=== PATIENT | female | born 1945 | race Caucasian/White ===

== ENCOUNTER 2017-09-23 07:30 | Inpatient (IN) | payer MEDICARE, OTHER ==
[~2017-09-23] VITALS: Ht 162.6 cm; Wt 78.0 kg
[~2017-09-23 07:30] MED LIST: AMOX1TAB64 PO; ASPI-691 PO; ATEN25TA PO; BROM1.7D9 EACHEYE; CHOL100015 PO; DEXL60CA2 PO; MORP15TA PO; RALO60TA PO; SERT50TA PO; TRIA0.2576 PO; [UNRECOGNIZED DRUG - CODE] EACHEYE
[2017-09-23] MEDS ORDERED: SCOPOLAMINE PATCH, 1.5MG PATCH.TD72 TD ONE (08:00)
[2017-09-23] MEDS ORDERED: ONDANSETRON ODT 8 MG PO ONE (08:00)
[2017-09-23] MEDS ORDERED: ACETAMINOPHEN 500 MG TABLET PO ONE (08:00)
[2017-09-23] MEDS ORDERED: GABAPENTIN 300 MG CAPSULE PO ONE (08:00)
[2017-09-23] MEDS ORDERED: LACTATED RINGERS 1,000 ML IV SCH (08:00)
[2017-09-23 08:15] VITALS: BP 107/71
[2017-09-23] MEDS ORDERED: FENTANYL PF 250 MCG/5ML ONE (11:42)
[2017-09-23] MEDS ORDERED: PROPOFOL 50 ML ONE ×2 (11:42→13:39)
[2017-09-23] MEDS ORDERED: DEXAMETHASONE 4 MG/ML, 1ML ONE (11:42)
[2017-09-23] MEDS ORDERED: CEFAZOLIN 1,000 MG ONE (11:42)
[2017-09-23] MEDS ORDERED: PROPOFOL 10 MG/ML, 20ML ONE (11:42)
[2017-09-23] MEDS ORDERED: THROMBIN 5,000 UNIT VIAL TP ONE (12:03)
[2017-09-23] MEDS ORDERED: BUPIVACAINE/PF-EPI 0.5% 1:200K ONE (12:03)
[2017-09-23] MEDS ORDERED: BACITRACIN 50,000 UNIT ONE (12:03)
[2017-09-23] MEDS ORDERED: PHENYLEPHRINE 10 MG/ML ONE (12:31)
[2017-09-23] MEDS ORDERED: EPHEDRINE 50 MG/ML, 1ML ONE (12:31)
[2017-09-23] MEDS ORDERED: SUCCINYLCHOLINE 20 MG/ML, 10ML ONE (12:31)
[2017-09-23] MEDS ORDERED: KETAMINE 10 MG/ML, 20ML ONE (13:23)
[2017-09-23] MEDS ORDERED: LIDOCAINE GEL 2%, 5ML ONE (13:48)
[2017-09-23] MEDS ORDERED: FENTANYL PF 100 MCG/2ML IV PRN (14:00)
[2017-09-23] MEDS ORDERED: DIPHENHYDRAMINE 50 MG/ML, 1ML IVPush PRN ×2 (14:00→15:00)
[2017-09-23] MEDS ORDERED: DIAZEPAM 5 MG/ML, 2ML IVPush PRN (14:00)
[2017-09-23] MEDS ORDERED: PROMETHAZINE 25 MG/ML, 1ML IV PRN (14:00)
[2017-09-23] MEDS ORDERED: HALOPERIDOL 5 MG/ML IV PRN (14:00)
[2017-09-23] MEDS ORDERED: hydrALAzine 20 MG/ML, 1ML IV PRN (14:00)
[2017-09-23] MEDS ORDERED: MEPERIDINE/PF 25MG/0.5ML IVPush PRN (14:00)
[2017-09-23] MEDS ORDERED: MIDAZOLAM 1 MG/ML, 2ML IV PRN (14:00)
[2017-09-23] MEDS ORDERED: OXYcodone 5 MG/5 ML ORAL.SOL UDC PO PRN (14:00)
[2017-09-23] MEDS ORDERED: LABETALOL 5MG/ML, 20ML IV PRN (14:00)
[2017-09-23] MEDS ORDERED: ALBUTEROL/IPRATROPIUM 2.5MG/0.5MG, 3 ML NPPB PRN (14:00)
[2017-09-23] MEDS ORDERED: LORazepam 2 MG/ML, 1ML IVPush PRN (14:00)
[2017-09-23] MEDS ORDERED: ONDANSETRON ODT 8 MG PO PRN (14:00)
[2017-09-23] MEDS ORDERED: PROMETHAZINE 25 MG/ML, 1ML IM PRN ×2 (14:00→15:00)
[2017-09-23] MEDS ORDERED: VANCOMYCIN 1,000 MG ONE (14:27)
[2017-09-23] MEDS ORDERED: BISACODYL 10 MG SUPP PR PRN (15:00)
[2017-09-23] MEDS ORDERED: PHARMACY MAY ADJ FOR RENAL FX MC PRN (15:00)
[2017-09-23] MEDS ORDERED: ONDANSETRON 2MG/ML, 2ML IVPush PRN (15:00)
[2017-09-23] MEDS ORDERED: MAGNESIUM HYDROXIDE 8%, 30ML UDC PO PRN (15:00)
[2017-09-23] MEDS ORDERED: morphine SULFATE 10 MG/ML, 1ML ONE (17:39)
[2017-09-23] MEDS: MORPHINE SULFATE 4 MG/ML, 1ML IVPush PRN ×2 (17:41→17:51)
[2017-09-23 18:30] VITALS: BP 93/61
[2017-09-23] MEDS: NS + 20MEQ KCL 1,000 ML IV SCH (19:52)
[2017-09-23 20:23] VITALS: BP 91/49
[2017-09-23] MEDS: CEFAZOLIN PMX 1GM/50ML 50 ML IVPB SCH (20:59)
[2017-09-23] MEDS: SODIUM CHLORIDE FLUSH 10ML SYR IVF SCH (21:00)
[2017-09-24 00:08] VITALS: BP 94/60
[2017-09-24] MEDS: CEFAZOLIN PMX 1GM/50ML 50 ML IVPB SCH (05:00)
[2017-09-24 05:04] VITALS: BP 91/56
[2017-09-24] MEDS: NS + 20MEQ KCL 1,000 ML IV SCH ×2 (05:41→16:00)
[2017-09-24 05:51] LABS: BASOPHILS # (AUTO) 0.01 x10^3/uL (0-0.1); BASOPHILS % (AUTO) 0 % (0-1); EOSINOPHILS % (AUTO) 0 % (1-7); LYMPHOCYTES # (AUTO) 0.55 x10^3/uL (1-3.4); LYMPHOCYTES % (AUTO) 4 % (22-44); MD NO; MEAN CORPUSCULAR HEMOGLOBIN 29.6 pg (27.0-34.8); MEAN CORPUSCULAR HGB CONC 33.2 g/dL (32.4-35.8); MEAN PLATELET VOLUME 9.6 fL (7.4-10.4); MONOCYTES # (AUTO) 0.82 x10^3/uL (0.2-0.8); MONOCYTES % (AUTO) 6 % (2-9); NEUTROPHILS # (AUTO) 12.28 x10^3/uL (1.8-6.8); NEUTROPHILS % (AUTO) 90 % (42-75); PLATELET COUNT 143 x10^3/uL (130-400); RED BLOOD COUNT 3.45 x10^6/uL (3.82-5.3); RED CELL DISTRIBUTION WIDTH 13.6 % (9.6-15.2)
[2017-09-24 06:00] LABS: ANION GAP 6 mmol/L (5-15); CALCIUM 8.2 mg/dL (8.5-10.1); CHLORIDE 110 mmol/L (98-107)
[2017-09-24 06:03] LABS: CREATININE 0.73 mg/dL (0.55-1.02)
[2017-09-24 06:44] VITALS: BP 102/64
[2017-09-24] MEDS: SODIUM CHLORIDE FLUSH 10ML SYR IVF SCH ×2 (08:55→23:20)
[2017-09-24] MEDS: SERTRALINE 50MG TABLET PO SCH (08:55)
[2017-09-24] MEDS: morphine SULFATE 15 MG TAB.IR PO PRN ×3 (08:56→16:16)
[2017-09-24] MEDS: ATENOLOL 25 MG TABLET PO SCH (08:56)
[2017-09-24] MEDS: SENNA/DOCUSATE TABLET PO SCH (08:56)
[2017-09-24] MEDS: RALOXIFENE 60 MG TABLET PO SCH (11:27)
[2017-09-24 14:14] VITALS: BP 90/60
[2017-09-24 18:28] VITALS: BP 96/62
[2017-09-24] MEDS: ACETAMINOPHEN 325 MG TABLET PO PRN (22:34)
[2017-09-24 22:56] VITALS: BP 82/54
[2017-09-24] MEDS ORDERED: SODIUM CHLORIDE 0.9% 1,000ML IVBOLUS ONE (23:00)
[2017-09-24 23:16] LABS: MICROSCOPIC NOT IND
[2017-09-24 23:30] LABS: CULTURE INDICATED? NO
[2017-09-25 00:53] VITALS: BP 105/66
[2017-09-25] MEDS: morphine SULFATE 15 MG TAB.IR PO PRN ×5 (00:59→23:08)
[2017-09-25 05:30] LABS: ANION GAP 5 mmol/L (5-15); CALCIUM 7.4 mg/dL (8.5-10.1); CHLORIDE 112 mmol/L (98-107)
[2017-09-25 05:31] LABS: CREATININE 0.68 mg/dL (0.55-1.02)
[2017-09-25 05:35] LABS: BASOPHILS # (AUTO) 0.02 x10^3/uL (0-0.1); BASOPHILS % (AUTO) 0 % (0-1); EOSINOPHILS # (AUTO) 0.01 x10^3/uL (0-0.4); EOSINOPHILS % (AUTO) 0 % (1-7); LYMPHOCYTES # (AUTO) 1.39 x10^3/uL (1-3.4); LYMPHOCYTES % (AUTO) 14 % (22-44); MD NO; MEAN CORPUSCULAR HEMOGLOBIN 28.7 pg (27.0-34.8); MEAN CORPUSCULAR VOLUME 89.7 fL (80-100); MEAN PLATELET VOLUME 10.4 fL (7.4-10.4); MONOCYTES % (AUTO) 10 % (2-9); NEUTROPHILS % (AUTO) 77 % (42-75); PLATELET COUNT 124 x10^3/uL (130-400); RED BLOOD COUNT 2.98 x10^6/uL (3.82-5.3); RED CELL DISTRIBUTION WIDTH 13.9 % (9.6-15.2)
[2017-09-25] MEDS: NS + 20MEQ KCL 1,000 ML IV SCH ×2 (06:32→18:21)
[2017-09-25 08:26] VITALS: BP 102/65
[2017-09-25] MEDS: ATENOLOL 25 MG TABLET PO SCH (09:00)
[2017-09-25] MEDS: RALOXIFENE 60 MG TABLET PO SCH (09:55)
[2017-09-25] MEDS: SERTRALINE 50MG TABLET PO SCH (09:56)
[2017-09-25] MEDS: SENNA/DOCUSATE TABLET PO SCH (09:56)
[2017-09-25] MEDS: SODIUM CHLORIDE FLUSH 10ML SYR IVF SCH ×2 (09:56→22:17)
[2017-09-25] MEDS: ACETAMINOPHEN 325 MG TABLET PO PRN ×2 (11:58→18:37)
[2017-09-25] MEDS ORDERED: TIZANIDINE 4MG TABLET ONE ×2 (12:28→20:28)
[2017-09-25] MEDS: TIZANIDINE 2MG TABLET PO PRN ×2 (12:31→20:51)
[2017-09-25 14:30] VITALS: BP 88/54
[2017-09-25 15:50] LABS: BASOPHILS # (AUTO) 0.12 x10^3/uL (0-0.1); BASOPHILS % (AUTO) 1 % (0-1); EOSINOPHILS # (AUTO) 0.01 x10^3/uL (0-0.4); EOSINOPHILS % (AUTO) 0 % (1-7); LYMPHOCYTES # (AUTO) 1.33 x10^3/uL (1-3.4); LYMPHOCYTES % (AUTO) 14 % (22-44); MD SCAN; MEAN CORPUSCULAR HEMOGLOBIN 29.7 pg (27.0-34.8); MEAN CORPUSCULAR HGB CONC 33.4 g/dL (32.4-35.8); MEAN CORPUSCULAR VOLUME 88.9 fL (80-100); MEAN PLATELET VOLUME 9.2 fL (7.4-10.4); MONOCYTES # (AUTO) 0.86 x10^3/uL (0.2-0.8); MONOCYTES % (AUTO) 9 % (2-9); NEUTROPHILS % (AUTO) 75 % (42-75); PLATELET COUNT 112 x10^3/uL (130-400); RED BLOOD COUNT 2.89 x10^6/uL (3.82-5.3); RED CELL DISTRIBUTION WIDTH 13.4 % (9.6-15.2)
[2017-09-25] MEDS ORDERED: SODIUM CHLORIDE 0.9%, 500ML IVBOLUS ONE (17:00)
[2017-09-25 18:40] VITALS: BP 106/68
[2017-09-25 20:49] VITALS: BP 103/63
[2017-09-25] MEDS ORDERED: IPRA4AER PO (21:53)
[2017-09-25] MEDS ORDERED: BUDE10.22 PO (21:53)
[2017-09-26 01:34] VITALS: BP 102/51
[2017-09-26] MEDS ORDERED: TIZANIDINE 4MG TABLET ONE ×3 (03:26→16:08)
[2017-09-26] MEDS: TIZANIDINE 2MG TABLET PO PRN ×2 (03:27→16:05)
[2017-09-26] MEDS: morphine SULFATE 15 MG TAB.IR PO PRN ×3 (04:45→22:29)
[2017-09-26] MEDS: ACETAMINOPHEN 325 MG TABLET PO PRN ×2 (05:25→09:26)
[2017-09-26 05:45] LABS: BASOPHILS # (AUTO) 0.01 x10^3/uL (0-0.1); BASOPHILS % (AUTO) 0 % (0-1); EOSINOPHILS % (AUTO) 0 % (1-7); LYMPHOCYTES # (AUTO) 0.34 x10^3/uL (1-3.4); LYMPHOCYTES % (AUTO) 3 % (22-44); MD NO; MEAN CORPUSCULAR HEMOGLOBIN 30.2 pg (27.0-34.8); MEAN CORPUSCULAR HGB CONC 33.6 g/dL (32.4-35.8); MEAN CORPUSCULAR VOLUME 89.8 fL (80-100); MEAN PLATELET VOLUME 10.9 fL (7.4-10.4); MONOCYTES # (AUTO) 0.63 x10^3/uL (0.2-0.8); MONOCYTES % (AUTO) 6 % (2-9); NEUTROPHILS # (AUTO) 9.83 x10^3/uL (1.8-6.8); NEUTROPHILS % (AUTO) 91 % (42-75); PLATELET COUNT 112 x10^3/uL (130-400); RED BLOOD COUNT 3.06 x10^6/uL (3.82-5.3); RED CELL DISTRIBUTION WIDTH 13.6 % (9.6-15.2)
[2017-09-26 05:58] LABS: ANION GAP 7 mmol/L (5-15); CALCIUM 7.8 mg/dL (8.5-10.1); CHLORIDE 108 mmol/L (98-107); CREATININE 0.56 mg/dL (0.55-1.02)
[2017-09-26] MEDS: NS + 20MEQ KCL 1,000 ML IV SCH ×2 (06:24→16:08)
[2017-09-26 07:50] VITALS: BP 117/58
[2017-09-26] MEDS: SODIUM CHLORIDE FLUSH 10ML SYR IVF SCH ×2 (09:00→21:49)
[2017-09-26] MEDS: SENNA/DOCUSATE TABLET PO SCH (09:17)
[2017-09-26] MEDS: RALOXIFENE 60 MG TABLET PO SCH (09:17)
[2017-09-26] MEDS: ATENOLOL 25 MG TABLET PO SCH (09:18)
[2017-09-26] MEDS: SERTRALINE 50MG TABLET PO SCH (09:18)
[2017-09-26] MEDS: DEXAMETHASONE 4 MG TABLET PO SCH ×3 (10:00→21:48)
[2017-09-26 13:41] VITALS: BP 86/54
[2017-09-26 19:01] VITALS: BP 89/53
[2017-09-26 22:25] VITALS: BP 149/75
[2017-09-26 23:05] LABS: MICROSCOPIC NOT IND
[2017-09-26 23:14] LABS: CULTURE INDICATED? NO
[2017-09-27 02:28] VITALS: BP 132/63
[2017-09-27 05:25] LABS: ANION GAP 8 mmol/L (5-15); CALCIUM 8.2 mg/dL (8.5-10.1); CHLORIDE 105 mmol/L (98-107); CREATININE 0.67 mg/dL (0.55-1.02)
[2017-09-27] MEDS: morphine SULFATE 15 MG TAB.IR PO PRN ×4 (05:58→20:23)
[2017-09-27 06:11] LABS: BASOPHILS # (AUTO) 0.09 x10^3/uL (0-0.1); BASOPHILS % (AUTO) 1 % (0-1); EOSINOPHILS % (AUTO) 0 % (1-7); LYMPHOCYTES % (AUTO) 2 % (22-44); MD SCAN; MONOCYTES # (AUTO) 0.61 x10^3/uL (0.2-0.8); MONOCYTES % (AUTO) 4 % (2-9); NEUTROPHILS # (AUTO) 13.16 x10^3/uL (1.8-6.8); NEUTROPHILS % (AUTO) 93 % (42-75)
[2017-09-27 06:13] LABS: MEAN CORPUSCULAR HEMOGLOBIN 30.5 pg (27.0-34.8); MEAN CORPUSCULAR HGB CONC 34.2 g/dL (32.4-35.8); MEAN CORPUSCULAR VOLUME 89.2 fL (80-100); MEAN PLATELET VOLUME 10.4 fL (7.4-10.4); PLATELET COUNT 140 x10^3/uL (130-400); RED BLOOD COUNT 3.26 x10^6/uL (3.82-5.3); RED CELL DISTRIBUTION WIDTH 13.3 % (9.6-15.2)
[2017-09-27 06:31] VITALS: BP 152/71
[2017-09-27] MEDS ORDERED: TIZANIDINE 4MG TABLET ONE ×2 (07:04→16:04)
[2017-09-27] MEDS: TIZANIDINE 2MG TABLET PO PRN ×2 (07:06→16:06)
[2017-09-27] MEDS: ACETAMINOPHEN 325 MG TABLET PO PRN ×3 (07:06→22:10)
[2017-09-27 08:00] VITALS: BP 112/68
[2017-09-27] MEDS: SODIUM CHLORIDE FLUSH 10ML SYR IVF SCH ×2 (09:00→20:23)
[2017-09-27] MEDS: SENNA/DOCUSATE TABLET PO SCH (09:43)
[2017-09-27] MEDS: SERTRALINE 50MG TABLET PO SCH (09:43)
[2017-09-27] MEDS: RALOXIFENE 60 MG TABLET PO SCH (09:43)
[2017-09-27] MEDS: DEXAMETHASONE 4 MG/ML, 1ML IVPush SCH ×3 (09:43→20:23)
[2017-09-27] MEDS: CIPROFLOXACIN 500 MG TABLET PO SCH ×2 (09:44→20:23)
[2017-09-27] MEDS: ATENOLOL 25 MG TABLET PO SCH (09:44)
[2017-09-27] MEDS: NS + 20MEQ KCL 1,000 ML IV SCH ×2 (13:09→23:25)
[2017-09-27 14:36] VITALS: BP 94/50
[2017-09-27 19:39] VITALS: BP 95/51
[2017-09-28] MEDS: TIZANIDINE 2MG TABLET PO PRN ×3 (00:17→20:06)
[2017-09-28 00:27] VITALS: BP 94/49
[2017-09-28] MEDS: morphine SULFATE 15 MG TAB.IR PO PRN ×3 (02:30→18:01)
[2017-09-28] MEDS: DEXAMETHASONE 4 MG/ML, 1ML IVPush SCH ×4 (02:31→22:42)
[2017-09-28 05:04] LABS: ANION GAP 8 mmol/L (5-15); CALCIUM 8.1 mg/dL (8.5-10.1); CHLORIDE 109 mmol/L (98-107); CREATININE 0.54 mg/dL (0.55-1.02)
[2017-09-28] MEDS: ACETAMINOPHEN 325 MG TABLET PO PRN ×3 (05:53→22:48)
[2017-09-28 06:24] LABS: MEAN CORPUSCULAR HGB CONC 33.6 g/dL (32.4-35.8); MEAN CORPUSCULAR VOLUME 89.3 fL (80-100); MEAN PLATELET VOLUME 10.8 fL (7.4-10.4); PLATELET COUNT 139 x10^3/uL (130-400); RED BLOOD COUNT 2.75 x10^6/uL (3.82-5.3); RED CELL DISTRIBUTION WIDTH 13.9 % (9.6-15.2)
[2017-09-28 06:26] LABS: BASOPHILS # (AUTO) 0.02 x10^3/uL (0-0.1); BASOPHILS % (AUTO) 0 % (0-1); EOSINOPHILS % (AUTO) 0 % (1-7); LYMPHOCYTES % (AUTO) 4 % (22-44); MD SCAN; MONOCYTES % (AUTO) 5 % (2-9); NEUTROPHILS # (AUTO) 8.99 x10^3/uL (1.8-6.8); NEUTROPHILS % (AUTO) 91 % (42-75)
[2017-09-28] MEDS: SENNA/DOCUSATE TABLET PO SCH (08:32)
[2017-09-28] MEDS: RALOXIFENE 60 MG TABLET PO SCH (08:32)
[2017-09-28] MEDS: SERTRALINE 50MG TABLET PO SCH (08:32)
[2017-09-28] MEDS: CIPROFLOXACIN 500 MG TABLET PO SCH ×2 (08:33→22:42)
[2017-09-28 08:34] VITALS: BP 90/38
[2017-09-28] MEDS: ATENOLOL 25 MG TABLET PO SCH ×2 (08:35→08:56)
[2017-09-28] MEDS: SODIUM CHLORIDE FLUSH 10ML SYR IVF SCH ×2 (09:00→22:42)
[2017-09-28] MEDS: NS + 20MEQ KCL 1,000 ML IV SCH ×2 (09:35→22:42)
[2017-09-28 11:58] VITALS: BP 109/62
[2017-09-28] MEDS ORDERED: TIZANIDINE 4MG TABLET ONE ×2 (12:03→20:03)
[2017-09-28 13:39] VITALS: BP 107/64
[2017-09-28 18:55] VITALS: BP 120/69
[2017-09-29] MEDS: morphine SULFATE 15 MG TAB.IR PO PRN ×2 (00:46→10:56)
[2017-09-29 02:08] VITALS: BP 104/66
[2017-09-29] MEDS: ACETAMINOPHEN 325 MG TABLET PO PRN (03:25)
[2017-09-29] MEDS: DEXAMETHASONE 4 MG/ML, 1ML IVPush SCH ×2 (03:25→10:56)
[2017-09-29] MEDS ORDERED: TIZANIDINE 4MG TABLET ONE (03:36)
[2017-09-29] MEDS: TIZANIDINE 2MG TABLET PO PRN (03:38)
[2017-09-29 05:38] LABS: CHLORIDE 109 mmol/L (98-107)
[2017-09-29 05:48] LABS: ANION GAP 8 mmol/L (5-15); CALCIUM 8.1 mg/dL (8.5-10.1); CREATININE 0.59 mg/dL (0.55-1.02)
[2017-09-29 06:01] LABS: MEAN CORPUSCULAR HEMOGLOBIN 30.1 pg (27.0-34.8); MEAN CORPUSCULAR HGB CONC 33.8 g/dL (32.4-35.8); MEAN CORPUSCULAR VOLUME 89.1 fL (80-100); MEAN PLATELET VOLUME 10.4 fL (7.4-10.4); PLATELET COUNT 152 x10^3/uL (130-400); RED BLOOD COUNT 2.88 x10^6/uL (3.82-5.3); RED CELL DISTRIBUTION WIDTH 13.7 % (9.6-15.2)
[2017-09-29 06:30] LABS: BASOPHILS % (AUTO) 0 % (0-1); EOSINOPHILS % (AUTO) 0 % (1-7); LYMPHOCYTES # (AUTO) 0.46 x10^3/uL (1-3.4); LYMPHOCYTES % (AUTO) 6 % (22-44); MD SCAN; MONOCYTES % (AUTO) 5 % (2-9); NEUTROPHILS # (AUTO) 7.03 x10^3/uL (1.8-6.8); NEUTROPHILS % (AUTO) 89 % (42-75)
[2017-09-29] MEDS: NS + 20MEQ KCL 1,000 ML IV SCH (08:00)
[2017-09-29 08:20] VITALS: BP 114/69
[2017-09-29] MEDS ORDERED: CIPR500T87 PO (08:55)
[2017-09-29] MEDS ORDERED: TIZA2TAB PO (08:55)
[2017-09-29] MEDS ORDERED: MORP15TA PO (08:55)
[2017-09-29] MEDS ORDERED: METH4TAB2 PO (08:55)
[2017-09-29] MEDS: ATENOLOL 25 MG TABLET PO SCH (09:00)
[2017-09-29] MEDS: RALOXIFENE 60 MG TABLET PO SCH (10:56)
[2017-09-29] MEDS: SODIUM CHLORIDE FLUSH 10ML SYR IVF SCH (10:56)
[2017-09-29] MEDS: SERTRALINE 50MG TABLET PO SCH (10:57)
[2017-09-29] MEDS: CIPROFLOXACIN 500 MG TABLET PO SCH (10:57)
[2017-09-29] MEDS: SENNA/DOCUSATE TABLET PO SCH (10:57)
== END 2017-09-29 12:50 | disposition home or self-care (01) | DRG 460 ==
LOC: ORIP 07:39 → 4NOR 18:17
PROVIDERS: ADMIT Neurological Surgery; ATTEND Neurological Surgery
PROC: 01NB0ZZ Release Lumbar Nerve, Open Approach (ICD-10-PCS; 2017-09-23)
PROC: 0SP00JZ Removal of Synthetic Substitute from Lumbar Vertebral Joint, Open Approach (ICD-10-PCS; 2017-09-23)
PROC: 0SG00AJ Fusion of Lumbar Vertebral Joint with Interbody Fusion Device, Posterior Approach, Anterior Column, Open Approach (ICD-10-PCS; principal; 2017-09-23 11:00)
PROC: 0T9B70Z Drainage of Bladder with Drainage Device, Via Natural or Artificial Opening (ICD-10-PCS; 2017-09-26)
DX: M48.062 Spinal stenosis, lumbar region with neurogenic claudication (principal); R71.0 Precipitous drop in hematocrit; M43.16 Spondylolisthesis, lumbar region; Z87.440 Personal history of urinary (tract) infections; M51.36 Other intervertebral disc degeneration, lumbar region; M43.26 Fusion of spine, lumbar region; M19.90 Unspecified osteoarthritis, unspecified site; M79.7 Fibromyalgia; G89.29 Other chronic pain; E78.00 Pure hypercholesterolemia, unspecified; Z86.718 Personal history of other venous thrombosis and embolism; Z88.6 Allergy status to analgesic agent; Z88.1 Allergy status to other antibiotic agents; Z88.2 Allergy status to sulfonamides; Z80.9 Family history of malignant neoplasm, unspecified
CPT/HCPCS: 36415; 72100; 72131; 80048; 81003; 82962; 85025; 95938; 95941; C1713; C1776; J0690; J1100; J2270; J2550; J2704; J3010; J3370; J3480; Q0162; C1762; J0330; J2370; J7030; J7040; J7120

== ENCOUNTER 2018-06-14 22:54 | Emergency (ER) | payer MEDICARE, OTHER ==
[~2018-06-14] VITALS: Ht 162.6 cm; Wt 67.0 kg
[~2018-06-14 22:54] MED LIST changes: +BUDE10.22 PO; +CIPR500T87 PO; +IPRA4AER PO; +METH4TAB2 PO; +TIZA2TAB PO
--- NOTE | 2018-06-14 23:14 | NUR ---
assessment made. ERP at bedside.
[2018-06-14] MEDS ORDERED: SODIUM CHLORIDE FLUSH 10ML SYR IVF ONE (23:30)
[2018-06-14] MEDS ORDERED: SODIUM CHLORIDE 0.9% 1,000ML IVBOLUS ONE (23:30)
[2018-06-14 23:35] LABS: BASOPHILS # (AUTO) 0.01 x10^3/uL (0-0.1); BASOPHILS % (AUTO) 0 % (0-1); EOSINOPHILS # (AUTO) 0.01 x10^3/uL (0-0.4); EOSINOPHILS % (AUTO) 0 % (1-7); LYMPHOCYTES # (AUTO) 0.48 x10^3/uL (1-3.4); LYMPHOCYTES % (AUTO) 7 % (22-44); MD NO; MEAN CORPUSCULAR HEMOGLOBIN 28.6 pg (27.0-34.8); MEAN CORPUSCULAR HGB CONC 33.7 g/dL (32.4-35.8); MEAN CORPUSCULAR VOLUME 84.7 fL (80-100); MEAN PLATELET VOLUME 10.3 fL (7.4-10.4); MONOCYTES # (AUTO) 0.54 x10^3/uL (0.2-0.8); MONOCYTES % (AUTO) 7 % (2-9); NEUTROPHILS % (AUTO) 86 % (42-75); PLATELET COUNT 151 x10^3/uL (130-400); RED BLOOD COUNT 5.09 x10^6/uL (3.82-5.3); RED CELL DISTRIBUTION WIDTH 15.8 % (9.6-15.2)
[2018-06-14 23:46] LABS: ALANINE AMINOTRANSFERASE 29 U/L (12-78); ALBUMIN 3.4 g/dL (3.4-5.0); ANION GAP 11 mmol/L (5-15); CALCIUM 8.9 mg/dL (8.5-10.1); CHLORIDE 107 mmol/L (98-107); CREATININE 0.89 mg/dL (0.55-1.02)
[2018-06-14 23:49] LABS: ALKALINE PHOSPHATASE 80 U/L (45-117); BILIRUBIN,TOTAL 0.6 mg/dL (0.2-1.0)
--- NOTE | 2018-06-15 00:16 | NUR ---
Pt aware of need for UA, fluids infusing, commode at bedside, pt agrees to attempt again for UA after fluids are done infusing. States she is normally ambulatory with steady gait without assistance.
--- NOTE | 2018-06-15 01:20 | NUR ---
Pt up to bedside commode many times, states she had bm in bed, linen, sheets changed, scant amount of stool noted on bed. Liquid stool in commode "hat" walked to lab. Pt up to commode without assistance with steady gait. Pt given many feminine pads and briefs per request for comfort. Denies need to urinate, potential need for straight cath explained to pt.
--- NOTE | 2018-06-15 01:36 | NUR ---
RECEIVED REPORT FROM IGOR RUIZ TO ASSUME PT. CARE.
[2018-06-15 01:59] LABS: CLOSTRIDIUM DIFFICILE ANTIGEN NEGATIVE; CLOSTRIDIUM DIFFICILE TOXIN NEGATIVE (Negative)
--- NOTE | 2018-06-15 02:09 | NUR ---
CLEAN CATCH URINE SAMPLE COLLECTED AND SENT TO LAB. VS UPDATED. CALL LIGHT IN REACH. ALL SAFETY MEASURES OBSERVED. FAMILY AT FOR SUPPORT.
[2018-06-15 02:46] LABS: MICROSCOPIC AUTO
[2018-06-15 02:51] LABS: CULTURE INDICATED? YES
[2018-06-15] MEDS ORDERED: OMNIPAQUE 350 MG/ML, 100ML BOTTLE ONE (03:05)
--- NOTE | 2018-06-15 03:14 | NUR ---
PER DR. MATAMOROS NO BLOOD CULTURES NEEDED PRIOR TO IV ABX.
[2018-06-15] MEDS ORDERED: CEFTRIAXONE PMX 1GM/50ML 50 ML ONE (03:16)
--- NOTE | 2018-06-15 03:21 | NUR ---
IV ABX INFUSING NOW PER MAR. PT. AWARE OF PLAN FOR D/C AFTER THIS. SAFETY MEASURES MAINTAINED.
[2018-06-15] MEDS ORDERED: CEFTRIAXONE PMX 1GM/50ML 50 ML IV ONE (03:30)
[2018-06-15 03:45] VITALS: BP 125/58
== END 2018-06-15 03:48 | disposition home or self-care (01) ==
LOC: ED 23:37
DX: R19.7 Diarrhea, unspecified (principal); R10.84 Generalized abdominal pain
CPT/HCPCS: 36415; 74177; 80053; 81001; 83690; 85025; 87077; 87086; 87324; 96361; 96365; 99284; J0696; J7030; Q9967; 87186